=== PATIENT | female | born 1965 | race Caucasian/White ===

== ENCOUNTER 2017-02-08 17:15 | Emergency (ER) | payer BC ==
[2017-02-08 17:49] VITALS: BP 112/70
--- NOTE | 2017-02-08 18:17 | UC ---
Respiratory Complaint HPI - HPI Summary HPI Summary: patient has had increased sinus and ear pressure, sore throat and cough for the past 7 days - History of Current Complaint Chief Complaint: UCGeneralIllness Stated Complaint: SINUS COMPLAINT HEADACHE Time Seen by Provider: 02/08/17 18:07 Hx Obtained From: Patient Hx Last Menstrual Period: no menses since depo in 07/2016 ?: No Onset/Duration: Sudden Onset, Lasting Days Timing: Constant Severity Initially: Mild Severity Currently: Moderate Character: Cough: Nonproductive Aggravating Factors: Exertion, Deep Breaths, Recumbent Position Alleviating Factors: Nothing Associated Signs And Symptoms: Positive: Dyspnea, URI, Nasal Congestion - Allergies/Home Medications Allergies/Adverse Reactions: Allergies Allergy/AdvReac Type Severity Reaction Status Date / Time Amoxicillin [From Augmentin] Allergy Intermediate Hives Verified 02/08/17 17:44 Clavulanic Acid Allergy Intermediate Hives Verified 02/08/17 17:44 [From Augmentin] Bee Venom Allergy anaphylaxis Verified 02/08/17 17:44 Erythromycin AdvReac GI symptoms Verified 02/08/17 17:44 Morphine AdvReac difficult Verified 02/08/17 17:44 to arouse Home Medications: Home Medications Fexofenadine-Pseudoephedrine [Karen-D 24 Hour Allergy] 1 tab PO DAILY PRN 04/19 [History Confirmed 02/08/17] PMH/Surg Hx/FS Hx/Imm Hx Previously Healthy: Yes - Surgical History Surgical History: Yes Surgery Procedure, Year, and Place: Cholecystectomy, 2000. , 2003. Rt Shoulder Rotator cuff, 2015 - Family History Known Family History: Negative: Cardiac Disease, Hypertension - Social History Alcohol Use: None Substance Use Type: None Smoking Status (MU): Heavy Every Day Tobacco Smoker Type: Cigarettes Amount Used/How Often: 1 pack daily Review of Systems Constitutional: Fatigue Skin: Negative Eyes: Negative ENT: Sore Throat, Ear Ache, Nasal Discharge Respiratory: Shortness Of Breath, Cough Cardiovascular: Negative Gastrointestinal: Negative Genitourinary: Negative Motor: Negative Neurovascular: Negative Musculoskeletal: Negative Neurological: Headache Psychological: Negative All Other Systems Reviewed And Are Negative: Yes Physical Exam Triage Information Reviewed: Yes Appearance: Well-Nourished, Ill-Appearing, Pain Distress Vital Signs: Initial Vital Signs Temp 98.8 F 02/08/17 17:45 Pulse 87 02/08/17 17:45 Resp 16 02/08/17 17:45 BP 112/70 02/08/17 17:45 Pulse Ox 97 02/08/17 17:45 Vital Signs Reviewed: Yes Eye Exam: Normal Eyes: Positive: Conjunctiva Clear ENT: Positive: Hearing grossly normal, Pharyngeal erythema, TM bulging, TM dull , TM red - right ear, Tonsillar swelling, Tonsillar exudate Dental Exam: Normal Neck exam: Normal Neck: Positive: Supple, Nontender, No Lymphadenopathy Respiratory Exam: Normal Respiratory: Positive: Chest non-tender, Lungs clear, Normal breath sounds Cardiovascular Exam: Normal Cardiovascular: Positive: RRR, No Murmur, Pulses Normal Abdominal Exam: Normal Abdomen Description: Positive: Nontender, No Organomegaly, Soft Bowel Sounds: Positive: Present Musculoskeletal Exam: Normal Musculoskeletal: Positive: Strength Intact, ROM Intact, No Edema Neurological Exam: Normal Neurological: Positive: Alert, Muscle Tone Normal Psychological Exam: Normal Skin Exam: Normal UC Diagnostic Evaluation - Laboratory O2 Sat by Pulse Oximetry: 97 Respiratory Course/Dx - Course Course Of Treatment: hx obtained, exam performed, meds reviewed, treated for sinusitis and tight otitis media - Differential Dx/Diagnosis Differential Diagnosis/HQI/PQRI: Aspiration, Asthma, Bronchitis, Influenza, Laryngitis, Sinusitis Provider Diagnoses: right otitis media. sinustitis. wheezing Discharge - Discharge Plan Condition: Stable Disposition: HOME Patient Education Materials: Sinusitis (ED) Additional Instructions: 1. take the medication as prescribed. 2. use your pro air for the cough and wheezing. 3. increase fluid intake and get plenty of rest.
== END 2017-02-08 18:25 | disposition home or self-care (01) ==
LOC: UCCORT 17:15
DX: H66.91 Otitis media, unspecified, right ear (principal); J32.9 Chronic sinusitis, unspecified; R06.2 Wheezing
CPT/HCPCS: 99211; G0463

== ENCOUNTER 2017-06-03 09:52 | Emergency (ER) | payer BC ==
[2017-06-03 10:45] VITALS: BP 105/66
--- NOTE | 2017-06-03 11:35 | UC ---
Ear Complaint HPI - HPI Summary HPI Summary: 51 y/o female presents to the clinic c/o Rt ear pain for the past 2 days. Pt states she has Hx of chronic sinusitis. Pt states her pain is 5/10 radiating to the RT side of neck and mild TURNER. She also has nasal congestion with clear nasal discharge. She has been taking Benadryl PO and Karen PO to alleviate symptoms. Pt denies fever, SOB, cough, chest pain, N/V/D, dizziness. - History of Current Complaint Chief Complaint: UCEar Stated Complaint: EAR/NECK PAIN Time Seen by Provider: 06/03/17 11:34 Hx Obtained From: Patient Hx Last Menstrual Period: n/a ?: No Onset/Duration: Gradual Onset, Lasting Days - 2, Still Present Severity Initially: Mild Severity Currently: Moderate Pain Intensity: 5 Pain Scale Used: 0-10 Numeric Aggravating Factors: Other - touch Alleviating Factors: OTC Meds Related History: Seasonal Allergies - Allergies/Home Medications Allergies/Adverse Reactions: Allergies Allergy/AdvReac Type Severity Reaction Status Date / Time Amoxicillin [From Augmentin] Allergy Intermediate Hives Verified 06/03/17 10:45 Clavulanic Acid Allergy Intermediate Hives Verified 06/03/17 10:45 [From Augmentin] Bee Venom Allergy anaphylaxis Verified 06/03/17 10:45 Erythromycin AdvReac GI symptoms Verified 06/03/17 10:45 Morphine AdvReac difficult Verified 06/03/17 10:45 to arouse Home Medications: Home Medications Diphenhydramine HCl [Benadryl Allergy 25 MG CAP] 2 tab PO BID 06/03/17 [History Confirmed 06/03/17] PMH/Surg Hx/FS Hx/Imm Hx Previously Healthy: Yes Other Respiratory History: chronic sinusitis - Surgical History Surgical History: Yes Surgery Procedure, Year, and Place: Cholecystectomy, 2000. , 2003. Rt Shoulder Rotator cuff, 2016 - Family History Known Family History: Positive: None - Pt denies FMHX Negative: Cardiac Disease, Hypertension - Social History Alcohol Use: None Substance Use Type: None Smoking Status (MU): Heavy Every Day Tobacco Smoker Type: Cigarettes Amount Used/How Often: 1 pack daily - Immunization History Most Recent Influenza Vaccination: no 2017 Review of Systems Constitutional: Negative Skin: Negative Eyes: Negative ENT: Sore Throat, Ear Ache - RT ear pain, Nasal Discharge - clear, Sinus Congestion Respiratory: Negative Cardiovascular: Negative Gastrointestinal: Negative Genitourinary: Negative Motor: Negative Neurovascular: Negative Musculoskeletal: Negative Neurological: Headache - mild Psychological: Negative Is Patient Immunocompromised?: No All Other Systems Reviewed And Are Negative: Yes Physical Exam Triage Information Reviewed: Yes Vital Signs: Initial Vital Signs Temp 97.4 F 06/03/17 10:42 Pulse 80 06/03/17 10:42 Resp 14 06/03/17 10:42 BP 105/66 06/03/17 10:42 Pulse Ox 100 06/03/17 10:42 - Additional Comments Vital signs: reviewed General: awake and alert, not toxic appearing. Skin: [place], warm and dry, no evidence of atopic dermatitis, psoriasis, seborrhea. HEENT: -Head: atraumatic, non tender; no scalp dermatitis. -Eyes: sclera and conjunctiva clear, PERRLA, EOMI -Ears: no pre- or postauricular lymphadenopathy or erythema; RT external ear canal with erythema and yellowish purulent discharge, pinna tenderness on palpation, Rt TM WNL, LF external ear canal clear and LF TM WNL. TMs normal w/ out bulging or retraction. Good light reflex. No fluid level, vesicles, or bullae. No perforation. -Nose/Face: erythematous and edematous nasal mucosa with clear rhinorrhea, no frontal or maxillary sinus tender to palpation. -Mouth/Throat: Mucous membrane moist, posterior pharynx clear, no erythema or exudates. Neck: supple, FROM, nontender, no lymphadenopathy, no meningismus. Chest: Clear to auscultation, normal breath sounds Abd: soft, Bowel sounds active, Nontender. Back: no spinal or CVAT Neuro: A&O x4, GCS 15, no focal neuro deficits, normal behavior for age. Ear Complaint Course/Dx - Course Course Of Treatment: 51 y/o female presents to the clinic c/o Rt ear pain for the past 2 days. Pt states she has Hx of chronic sinusitis. Pt states her pain is 5/10 radiating to the RT side of neck and mild TURNER. She also has nasal congestion with clear nasal discharge.She has been taking Benadryl PO and Karen PO to alleviate symptoms. Pt denies fever, SOB, cough, chest pain, N/V/ D, dizziness. HX obtained. Pt with RT acute otitis externa and allergic rhinitis on examination. Pt Rx Cortisporin otic drops for Otitis and Flonase nasal spray, advised to continue taking the Karen PO for allergic rhinitis. Ibuprofen PO for TURNER. Advised If symptoms do not improve or worsen please f/u with your PCP or return to the urgent care for further evaluation and treatment.Pt understood and agreed with plan of care. - Differential Dx/Diagnosis Differential Diagnosis/HQI/PQRI: Cerumen Impaction, Mastoiditis, Otitis Externa , Otitis Media, Perforated TM, URI, Other - allergic rhinitis Provider Diagnoses: 1- Acute Rt otitis Externa. 2-Allergic rhinitis Discharge - Discharge Plan Condition: Stable Disposition: HOME Prescriptions: Fluticasone NASAL SPRAY 50MCG* [Flonase NASAL SPRAY 50MCG*] 2 spray BOTH NARES DAILY #1 btl Ibuprofen TAB* [Motrin TAB* 800 MG] 800 mg PO Q6H #20 tab Neomyc/Polym/HC 1% OTIC SUSP* [Cortisporin Otic Susp 1%*] 4 drop RIGHT EAR QID # 1 btl Patient Education Materials: Otitis Externa (ED), Allergic Rhinitis (ED) Referrals: Bethany Ryder PA [Primary Care Provider] - If Needed Additional Instructions: 1-Please apply medication on your Rt ear as directed. 2-Take ibuprofen PO after meals for pain. 3- continue taking the karen PO and star applying the flonase nasal spray as directed to alleviate symptoms 3-If symptoms do not improve or worsen please f/u with your PCP or return to the urgent care for further evaluation and treatment.
== END 2017-06-03 12:04 | disposition home or self-care (01) ==
LOC: UCCORT 09:52
DX: H60.501 Unspecified acute noninfective otitis externa, right ear (principal); J30.9 Allergic rhinitis, unspecified; F17.210 Nicotine dependence, cigarettes, uncomplicated; J32.9 Chronic sinusitis, unspecified; Z88.6 Allergy status to analgesic agent; Z88.1 Allergy status to other antibiotic agents
CPT/HCPCS: 99212; G0463

== ENCOUNTER 2017-12-19 10:28 | Emergency (ER) | payer BC ==
[2017-12-19 11:30] VITALS: BP 106/70
--- NOTE | 2017-12-19 12:16 | UC ---
Back Pain HPI - HPI Summary HPI Summary: Right lower back pain since yesterday. She has no numbness or tingling. No radiation down the leg. No vomiting. No blood in urine. It hurts more to move and bend over. Recently she has been moving heavier stuff at work. - History of Current Complaint Chief Complaint: UCGU Stated Complaint: BACK PAIN,POSSIBLE URINARY Time Seen by Provider: 12/19/17 11:21 Hx Obtained From: Patient Hx Last Menstrual Period: n/a ?: No Onset/Duration: Gradual Onset, Lasting Hours Timing: Constant, Lasting Hours Severity Initially: Moderate Severity Currently: Moderate Pain Intensity: 0 Back Pain: Is Discrete @ Character: Sharp, Dull, Aching Aggravating Factor(s): Movement, Lifting, Bending Alleviating Factor(s): Rest, Position Associated Signs And Symptoms: Negative: Swelling, Redness, Bruising, Fever, Weakness, Numbness, Tingling, Abdominal Pain, Bladder Incontinence, Bowel Incontinence, Weight Loss - Allergies/Home Medications Allergies/Adverse Reactions: Allergies Allergy/AdvReac Type Severity Reaction Status Date / Time amoxicillin [From Augmentin] Allergy Hives Verified 12/19/17 11:22 bee venom protein (honey bee) Allergy Anaphylatic Verified 12/19/17 11:22 Shock clavulanic acid Allergy Hives Verified 12/19/17 11:22 [From Augmentin] erythromycin base Allergy GI Upset Verified 12/19/17 11:22 [From Erythrocin] morphine Allergy See Comment Verified 12/19/17 11:22 Home Medications: Home Medications Albuterol HFA INHALER* [Ventolin HFA Inhaler*] 2 puff INH BID 12/19/17 [History Confirmed 12/19/17] PMH/Surg Hx/FS Hx/Imm Hx Previously Healthy: No - Obese. - Surgical History Surgical History: Yes Surgery Procedure, Year, and Place: Cholecystectomy, 2000. , 2003. Rt Shoulder Rotator cuff, 2016 - Family History Known Family History: Positive: None - Pt denies FMHX Negative: Cardiac Disease, Hypertension - Social History Occupation: Employed Full-time Alcohol Use: None Substance Use Type: None Smoking Status (MU): Heavy Every Day Tobacco Smoker Type: Cigarettes Amount Used/How Often: 1 pack daily - Immunization History Most Recent Influenza Vaccination: no 2016 Review of Systems Motor: Decreased ROM All Other Systems Reviewed And Are Negative: Yes Physical Exam Triage Information Reviewed: Yes Appearance: Well-Appearing, No Pain Distress - comfortable at rest but has obvious pain with changes in position or bending over., Well-Nourished Vital Signs: Initial Vital Signs Temp 99 F 12/19/17 11:24 Pulse 83 12/19/17 11:24 Resp 18 12/19/17 11:24 BP 106/70 12/19/17 11:24 Pulse Ox 98 12/19/17 11:24 Vital Signs Reviewed: Yes Eyes: Positive: Conjunctiva Clear ENT: Positive: Normal ENT inspection Neck exam: Normal Neck: Positive: Supple, Nontender, No Lymphadenopathy Respiratory: Positive: Normal breath sounds, No respiratory distress, No accessory muscle use. Negative: Respiratory distress Cardiovascular: Positive: Brisk Capillary Refill Abdomen Description: Positive: Nontender, No Organomegaly. Negative: CVA Tenderness (R), CVA Tenderness (L), Distended, Guarding Musculoskeletal Exam: Other - There is mid right back tenderness. No midline spinal percussion tenderness. Musculoskeletal: Positive: No Edema Neurological: Positive: Alert, Muscle Tone Normal. Negative: Fatigued Psychological: Positive: Age Appropriate Behavior Skin: Negative: rashes Back Pain Course/Dx - Course Course Of Treatment: Urine clean. This is more c/w muscle strain. She has no urinary symptoms except for brief dysuria. - Differential Dx/Diagnosis Provider Diagnoses: back strain. Discharge - Sign-Out/Discharge Documenting (check all that apply): Discharge - Discharge Plan Condition: Good Disposition: HOME Prescriptions: Naproxen Sodium [Naproxen Sodium 500 MG TAB] 500 mg PO BID PRN #20 tab PRN Reason: Pain Patient Education Materials: Muscle Strain (ED) Referrals: Bethany Ryder PA [Primary Care Provider] - - Billing Disposition and Condition Condition: GOOD Disposition: HOME
== END 2017-12-19 12:15 | disposition home or self-care (01) ==
LOC: UCCORT 10:28
DX: S39.012A Strain of muscle, fascia and tendon of lower back, initial encounter (principal); X50.0XXA Overexertion from strenuous movement or load, initial encounter; Y93.89 Activity, other specified; Y92.9 Unspecified place or not applicable; Z88.5 Allergy status to narcotic agent; Z88.0 Allergy status to penicillin; Z88.8 Allergy status to other drugs, medicaments and biological substances; Z88.1 Allergy status to other antibiotic agents; Z91.030 Bee allergy status; F17.210 Nicotine dependence, cigarettes, uncomplicated
CPT/HCPCS: 81003; 99212; G0463

== ENCOUNTER 2019-05-18 18:02 | Emergency (ER) | payer BC ==
[2019-05-18 18:33] VITALS: BP 129/71
--- NOTE | 2019-05-18 18:45 | UC ---
Throat Pain/Nasal Fran HPI - HPI Summary HPI Summary: 53 yo female with 3 week hx of seasonal allergies (KALI) now a week and a half of worsening facial pressure and pain as well as chest tightness and productive cough - History of Current Complaint Chief Complaint: UCGeneralIllness Stated Complaint: POSSIBLE SINUS INFECTION/COUGH Time Seen by Provider: 05/18/19 18:20 Hx Obtained From: Patient Hx Last Menstrual Period: n/a Onset/Duration: Gradual Onset, Lasting Weeks Severity: Moderate Pain Intensity: 5 Pain Scale Used: 0-10 Numeric Cough: Productive Associated Signs & Symptoms: Positive: Sinus Discomfort, Nasal Discharge Related History: Seasonal Allergies - Epiglottits Risk Factors Epiglottis Risk Factors: Negative - Allergies/Home Medications Allergies/Adverse Reactions: Allergies Allergy/AdvReac Type Severity Reaction Status Date / Time amoxicillin [From Augmentin] Allergy Hives Verified 05/18/19 18:33 bee venom protein (honey bee) Allergy Anaphylatic Verified 05/18/19 18:33 Shock clavulanic acid Allergy Hives Verified 05/18/19 18:33 [From Augmentin] erythromycin base Allergy GI Upset Verified 05/18/19 18:33 [From Erythrocin] morphine Allergy See Comment Verified 05/18/19 18:33 PMH/Surg Hx/FS Hx/Imm Hx Previously Healthy: Yes Respiratory History: Bronchitis, Pneumonia - Surgical History Surgical History: Yes Surgery Procedure, Year, and Place: , 2004. Rt Shoulder Rotator cuff, 2016 - Family History Known Family History: Positive: None - Pt denies FMHX Negative: Cardiac Disease, Hypertension - Social History Alcohol Use: None Substance Use Type: None Smoking Status (MU): Heavy Every Day Tobacco Smoker Type: Cigarettes Amount Used/How Often: 1 pack daily Cessation Counseling: Patient Advised to Stop - Immunization History Most Recent Influenza Vaccination: no 2017 Review of Systems All Other Systems Reviewed And Are Negative: Yes Constitutional: Positive: Negative Skin: Positive: Negative Eyes: Positive: Negative ENT: Positive: Nasal Discharge, Sinus Congestion, Sinus Pain/Tenderness Respiratory: Positive: Cough Cardiovascular: Positive: Negative Gastrointestinal: Positive: Negative Genitourinary: Positive: Negative Motor: Positive: Negative Neurovascular: Positive: Negative Musculoskeletal: Positive: Negative Neurological: Positive: Negative Psychological: Positive: Negative Physical Exam Triage Information Reviewed: Yes Appearance: Well-Appearing, No Pain Distress, Well-Nourished Vital Signs: Initial Vital Signs Temp 97.7 F 05/18/19 18:27 Pulse 92 05/18/19 18:27 Resp 20 05/18/19 18:27 BP 129/71 05/18/19 18:27 Pulse Ox 97 05/18/19 18:27 Vital Signs Reviewed: Yes Eyes: Positive: Conjunctiva Clear ENT: Positive: Hearing grossly normal, Nasal congestion, Nasal drainage, Sinus tenderness. Negative: Tonsillar swelling, Tonsillar exudate, Hoarse voice Neck: Positive: Nontender, No Lymphadenopathy Respiratory: Positive: Lungs clear, Normal breath sounds, No respiratory distress, Wheezing - with forced expiration, Other: - bronchospastic cough Cardiovascular: Positive: RRR, No Murmur Musculoskeletal: Positive: ROM Intact, No Edema Neurological: Positive: Alert Psychological Exam: Normal Skin Exam: Normal Throat Pain/Nasal Course/Dx - Differential Dx/Diagnosis Provider Diagnosis: Sinusitis, Bronchitis Discharge ED - Sign-Out/Discharge Documenting (check all that apply): Patient Departure All imaging exams completed and their final reports reviewed: No Studies - Discharge Plan Condition: Stable Disposition: HOME Prescriptions: Azithromycin TAB* [Zithromax TAB*] 250 mg PO DAILY #4 tab predniSONE [Deltasone 20 MG TAB] 40 mg PO DAILY #10 tab Patient Education Materials: Sinusitis (ED), Acute Bronchitis (ED) Forms: *Work Release Referrals: Bethany Ryder PA [Primary Care Provider] - 5 Days (if not improved) Additional Instructions: saline nasal spray 2 sprays each nostril 2x day warm facial compress you need to stop smoking use inhaler as directed - Billing Disposition and Condition Condition: STABLE Disposition: Home
[2019-05-18] MEDS ORDERED: Azithromycin TAB* 250 MG PO ONE (18:47)
[2019-05-18] MEDS ORDERED: Albuterol HFA INHALER* 8 gm MDI INH ONE (18:48)
== END 2019-05-18 19:09 | disposition home or self-care (01) ==
LOC: UCCORT 18:02
DX: J32.9 Chronic sinusitis, unspecified (principal); J40 Bronchitis, not specified as acute or chronic; F17.210 Nicotine dependence, cigarettes, uncomplicated
CPT/HCPCS: 99213; A9270-GY; G0463

== ENCOUNTER 2019-05-26 14:18 | Emergency (ER) | payer BC ==
[2019-05-26 14:42] VITALS: BP 112/67
--- NOTE | 2019-05-26 15:05 | UC ---
Dizzy HPI HPI Summary: 53 yo woman awoke yesterday with a left parietal headache, with accompanying sense of spaciness/wooziness. On 2 occasions has felt off balance and as though she might fall. Symptoms are not increasing in severity, feels some concern about driving as today she had some eye irritation and dryness which she felt could compromise her--but not the same symptoms as above. Headache is tolerable and she declines analgesics. No photophobia, nausea, vomiting, trauma hx. No hx of migraine. No falls. Does have some neck ache and has felt fatigued for the past 2 weeks. tx'd about 10 days ago for sinusitis with zpack and prednisone, overall sx resolved. No tinnitus, hearing loss or scotoma. - History Of Current Complaint Chief Complaint: Celestino Stated Complaint: DIZZINESS,TURNER Time Seen by Provider: 05/26/19 14:52 Hx Obtained From: Patient Hx Last Menstrual Period: n/a Onset/Duration: Gradual Onset, Lasting Days - 2 Timing: Constant - waxes and wanes. Severity Initially: Moderate Severity Currently: Mild Pain Intensity: 4 Character: Lightheaded, Dizzy Aggravating Factor(s): Headache, Position Change Alleviating Factor(s): Rest Associated Signs And Symptoms: Positive: OTC Medications - has taken oxybutynin in the morning and benadryl at hs for some years without evident side effects.. Negative: Nausea, Vomiting, Diaphoresis, Chest Pain, SOB, Palpitations, Decreased Oral Intake, Change In Medication - Risk Factors Cardiac Risk Factors: Smoking CVA Risk Factor: Smoking - Allergies/Home Medications Allergies/Adverse Reactions: Allergies Allergy/AdvReac Type Severity Reaction Status Date / Time bee venom protein (honey bee) Allergy Anaphylatic Verified 05/26/19 14:36 Shock clavulanic acid Allergy Hives Verified 05/26/19 14:36 [From Augmentin] erythromycin base Allergy GI Upset Verified 05/26/19 14:36 [From Erythrocin] morphine Allergy See Comment Verified 05/26/19 14:36 Home Medications: Home Medications Acetaminophen [Acetaminophen Extra Strength] 1,000 mg PO Q6H PRN 05/26/19 [ History Confirmed 05/26/19] Oxybutynin XL TAB* [Ditropan XL TAB*] 10 mg PO QAM 05/26/19 [History Confirmed 05/26/19] PMH/Surg Hx/FS Hx/Imm Hx Previously Healthy: Yes GI/ History: Other - stress incontinence. - Surgical History Surgical History: Yes Surgery Procedure, Year, and Place: Right Rotator Cuff, 2015, [place]; C- section, 2003, [place]; Cholecystectomy, ~1999, [place] - Family History Known Family History: Positive: Other - father of stroke age Negative: Cardiac Disease, Hypertension - Social History Occupation: Employed Part-time Alcohol Use: None Substance Use Type: None Smoking Status (MU): Heavy Every Day Tobacco Smoker Type: Cigarettes Amount Used/How Often: 1 PPD Length of Time of Smoking/Using Tobacco: Since Age 19 - Immunization History Most Recent Influenza Vaccination: no 2016 Review of Systems All Other Systems Reviewed And Are Negative: Yes Constitutional: Positive: Fatigue ENT: Negative: Sore Throat, Ear Ache, Nasal Discharge, Sinus Congestion Respiratory: Negative: Shortness Of Breath, Cough Cardiovascular: Negative: Palpitations, Chest Pain Genitourinary: Positive: Negative Motor: Positive: Negative Neurovascular: Positive: Negative Musculoskeletal: Positive: Other: - neck ache Neurological: Positive: Headache Psychological: Positive: Negative Physical Exam Triage Information Reviewed: Yes Appearance: Well-Appearing, No Pain Distress, Obese Vital Signs: Initial Vital Signs Temp 99.2 F 05/26/19 14:30 Pulse 82 05/26/19 14:30 Resp 16 05/26/19 14:30 BP 112/67 05/26/19 14:30 Pulse Ox 97 05/26/19 14:30 Eye Exam: Other - YUMIKO, normal eom without nystagmus Eyes: Positive: Conjunctiva Clear ENT: Positive: Pharynx normal, TMs normal Neck: Positive: Supple, Nontender, No Lymphadenopathy Respiratory: Positive: Lungs clear, Normal breath sounds Cardiovascular: Positive: RRR, No Murmur Musculoskeletal Exam: Normal Neurological Exam: Other - CNII-XII normal, no pronator drift, normal speech No past pointing with finger to nose, Romberg negative and heel to toe walking is normal. Neurological: Positive: Alert Psychological Exam: Normal Skin Exam: Normal Dizzy Course/Dx - Course Course Of Treatment: Trial of meclizine for likely BPPV; no hx of migraine and headache currently is mild. Will monitor sx, rest at home, follow up with Gil Ryder - Differential Dx/Diagnosis Differential Diagnosis/HQI/PQRI: Benign Paroxysmal Positional Vertigo, Labyrinthitis, Meniere's Disease, Other Provider Diagnosis: BPPV (benign paroxysmal positional vertigo) Discharge ED - Sign-Out/Discharge Documenting (check all that apply): Patient Departure All imaging exams completed and their final reports reviewed: No Studies - Discharge Plan Condition: Stable Disposition: HOME Prescriptions: Meclizine HCl [Dramamine Less Drowsy] 25 mg PO TID PRN #20 tablet PRN Reason: Dizziness Patient Education Materials: Benign Paroxysmal Positional Vertigo (ED) Print Language: INDONESIAN Forms: *Work Release Referrals: Bethany Ryder PA [Primary Care Provider] - Additional Instructions: Rest at home, and use ibuprofen 600mg up to 3 times per day for headache. Take with food and stop if you develop nausea or stomach upset. Use meclizine for dizziness up to 3 times per day. This is mildly sedating. DO NOT COMBINE MECLIZINE AND BENADRYL IT COULD CAUSE EXCESS SEDATION. Follow up with Dr. Ryder if the symptoms persist. - Billing Disposition and Condition Condition: STABLE Disposition: Home
== END 2019-05-26 15:36 | disposition home or self-care (01) ==
LOC: UCCORT 14:18
DX: H81.10 Benign paroxysmal vertigo, unspecified ear (principal); R32 Unspecified urinary incontinence; F17.210 Nicotine dependence, cigarettes, uncomplicated
CPT/HCPCS: 99212; G0463